=== PATIENT | female | born 1945 | race Caucasian/White ===

== ENCOUNTER 2023-08-31 00:28 | Emergency (ER) | payer OTHER, SELFPAY ==
[2023-08-31 00:42] VITALS: BP 99/82
--- NOTE | 2023-08-31 01:10 | ED.GENMED ---
History of Present Illness
General
Chief Complaint: Musculo-Skeletal Complaint
Time Seen by Provider: 08/31/23 01:01
Travel History
Have you had any contact with someone who has COVID-19?: No
Do you have any symptoms of coronavirus? Fever > 100 degrees, chills, cough, shortness of breath, sore throat, loss of taste or smell, muscle aches, or headache?: No
History of Present Illness
History of Present Illness:
HPI: The patient presents with several days of increasing pain behind the right knee. She states she has had a Santamaria's cyst in the past which was drained by Dr. Clifford. This feels somewhat similar. She was also concerned for the possibility of a
blood clot. She tried to make an appoint with Dr. Hanna however they apparently did not take her insurance so she has an appointment somewhere in [place] in 2 days.
EXAM:
GENERAL: Well appearing in no distress
HEENT: Moist oral mucosa
NEUROLOGIC: Excellent strength all extremities, no coordination deficits
PSYCHIATRIC: Appropriate mental status, normal insight and judgement
EXTREMITIES: The patient has rather significant tenderness to the popliteal region of the right knee, there is only minimal swelling at the right calf with no significant tenderness, there is markedly decreased active range of motion at the right
knee
SKIN: No rash, no lesions
ED COURSE:
1:10 AM: I initially evaluated patient
NUMBER AND COMPLEXITY OF PROBLEMS ADDRESSED AT THE ENCOUNTER
� Chronic conditions affecting care: Asthma, migraine, high blood pressure, hyperlipidemia, hypothyroidism
� Acute Exacerbation and/or Progression of Chronic Illness: This is an acute problem
� Differential Diagnosis includes: Santamaria's cyst, DVT, osteoarthritis, knee sprain, internal derangement of the right knee
AMOUNT AND/OR COMPLEXITY OF DATA TO BE REVIEWED AND ANALYZED
� I performed an independent evaluation of and my interpretation is:
EKG:
CT:
X-rays:
Laboratory Studies:
Other: Ultrasound reviewed with bindery technician
� Review of other/old records: The patient had ultrasound on 08/12/2022 that showed no DVT but did show a 4.6 cm fluid collection in the right popliteal fossa
� Clinical information was obtained by an independent historian:
� Prescriptions/Medications Considered but not given: I offered and considered narcotic analgesia as she appears uncomfortable for the patient declined opiates. She is already on NSAIDs.
� Further testing considered but not performed:
RISK OF COMPLICATIONS AND/OR MORBIDITY OR MORTALITY OF PATIENT MANAGEMENT
� Social determinants of health affecting care: Lives at home, drove herself here
� Discussion with other providers: I spoke to the bindery technician who states the patient has a 2.5 cm popliteal cyst and no DVT.
� Escalation of care including admission/observation vs risk of discharge considered: She agrees to try Tylenol and will check imaging.
Past History
Past History
ED Past Medical History: Asthma, HTN, Hypercholesterolemia, Hypothyroidism and Other (Arthritis, fibromyalgia, osteoporosis)
ED Past Surgical History: Gynecological, Orthopedic and Tonsilectomy
Social History
Tobacco: Non-smoker
Alcohol: None
Drug: None
Personal: Single
Living: alone
Employment: Not employed
Family History
Family History: Other
Phy Exam
Physical Exam
Physical Exam:
See HPI
Course
Orders/Labs/Results
Orders:
Orders
08/31/23 01:09
Acetaminophen [Tylenol] 1,000 mg PO NOW STA
CR Knee- Right 4 Or More View* Urgent
Comment:
Reason For Exam: pain
US Periph Venous LOWER Ext RT Urgent
Comment:
Reason For Exam: swelling eval for popliteal cyst / dvt
Vital Signs
Initial and Last Documented VS:
Initial Vital Signs
Temp Pulse Resp BP Pulse Ox
98.7 F 70 18 99/82 96
08/31/23 00:42 08/31/23 00:42 08/31/23 00:42 08/31/23 00:42 08/31/23 00:42
Last Documented Vital Signs
Temp Pulse Resp BP Pulse Ox
98.7 F 57 15 153/69 98
08/31/23 00:42 08/31/23 02:00 08/31/23 02:00 08/31/23 02:00 08/31/23 02:00
*Critical Care Note
Total Time (30-74mins, 75-104mins- exclusive of procedures): Not Applicable
ED Attending Note
-
Portions of this chart may have been created with voice recognition software.� Occasional wrong word or��sound alike� substitutions may have occurred due to the inherent limitations of voice recognition software.
Discharge Plan
Departure
Patient Disposition: Home (Routine Discharge)
Date of Disposition: 08/31/23
Time of Disposition: 02:44
Patient with high blood pressure during this ER visit?: Yes
Discharge Problem:
Santamaria's cyst
Instructions: Santamaria's Cyst (DC)
Prescriptions:
No Action
albuterol sulfate 1 PUFF HFA aerosol inhaler
2 puff inhalation R Q4HPRN PRN (Reason: ASTHMA)
Patient Comments:
last taken 6 months ago
amitriptyline 10 MG tablet
10 mg PO HS
multivitamin 1 EACH tablet
1 ea PO DAILY
calcium-vitamin D3-vitamin K 1 EACH tablet,chewable
1 ea PO DAILY
fluticasone propion-salmeterol [Advair Diskus] 100-50 mcg/dose Blister With Device
1 inh INHALATION PRN PRN (Reason: shortness of breath)
valsartan-hydrochlorothiazide 80-12.5 mg Tablet
1 tab PO DAILY
levothyroxine [Synthroid] 75 mcg Tablet
75 mcg PO DAILY
Referrals:
Carlton Hendricks MD [Family Provider] -
Activity Restrictions/Additional Instructions:
The ultrasound showed a 2.5 cm popliteal cyst. The ultrasound did not show any clots. I saw no changes on the x-ray compared to prior. Return here if worse.
Interventions
Interventions:
*Risk Screen - Suicide Last Done: 08/31/23 00:46
*General Assessment Last Done: 08/31/23 00:46
*Neglect/Abuse Screening Last Done: 08/31/23 00:46
ED- Fall Risk Assessment Last Done: 08/31/23 01:57
*ED COVID-19 Vaccine History Last Done: 08/31/23 01:57
ED-Musculoskeletal Assessment Last Done: 08/31/23 01:57
[2023-08-31] MEDS: TYLENOL 1000 MG PO (01:55)
[2023-08-31 02:00] VITALS: BP 153/69
[2023-08-31 02:02] VITALS: BMI 28.2
== END 2023-08-31 03:00 | disposition home or self-care (01) ==
LOC: EMR 00:28
PROVIDERS: EMERGENCY PHYSICIAN Emergency Medicine; FAMILY PHYSICIAN Family Medicine
DX: M71.21 Synovial cyst of popliteal space [Baker], right knee (principal); E03.9 Hypothyroidism, unspecified; I10 Essential (primary) hypertension; J45.909 Unspecified asthma, uncomplicated; E78.00 Pure hypercholesterolemia, unspecified
CPT/HCPCS: 99284; 73564; 93971

== ENCOUNTER → 2023-10-10 12:54 | Outpatient (REF) | payer OTHER, SELFPAY | LOC: PAVMRI 12:54 | PROVIDERS: ATTENDING PHYSICIAN Internal Medicine Gastroenterology; FAMILY PHYSICIAN Family Medicine | DX: R93.3 Abnormal findings on diagnostic imaging of other parts of digestive tract (principal) | CPT/HCPCS: 74183; A9575 ==

== ENCOUNTER → 2023-12-23 08:37 | Outpatient (REF) | payer OTHER, SELFPAY | LOC: HWRAD 08:37 | PROVIDERS: ATTENDING PHYSICIAN Family Medicine | DX: M25.551 Pain in right hip (principal) | CPT/HCPCS: 73502 ==

== ENCOUNTER → 2024-01-24 10:02 | Outpatient (REF) | payer OTHER, SELFPAY | LOC: WDC 10:02 | PROVIDERS: ATTENDING PHYSICIAN Obstetrics & Gynecology; FAMILY PHYSICIAN Family Medicine | DX: N64.4 Mastodynia (principal); N63.20 Unspecified lump in the left breast, unspecified quadrant; N63.23 Unspecified lump in the left breast, lower outer quadrant | CPT/HCPCS: 76642; 77061; 77065 ==

== ENCOUNTER → 2024-02-18 10:55 | Outpatient (REF) | payer OTHER, SELFPAY | LOC: HWRCS 10:55 | PROVIDERS: ATTENDING PHYSICIAN Internal Medicine Cardiovascular Disease; FAMILY PHYSICIAN Family Medicine | DX: I48.0 Paroxysmal atrial fibrillation (principal); I05.9 Rheumatic mitral valve disease, unspecified; I36.1 Nonrheumatic tricuspid (valve) insufficiency; R06.09 Other forms of dyspnea | CPT/HCPCS: 93306 ==

== ENCOUNTER → 2024-03-17 06:55 | Outpatient (REF) | payer OTHER, SELFPAY | LOC: DHCBC/DCA 06:55 | PROVIDERS: ATTENDING PHYSICIAN Nurse Practitioner Gerontology; FAMILY PHYSICIAN Family Medicine | DX: R07.89 Other chest pain (principal) | CPT/HCPCS: 78452; 93017; A9500; J2785 ==

== ENCOUNTER 2024-04-06 11:36 | Emergency (ER) | payer OTHER, SELFPAY ==
[2024-04-06 11:45] VITALS: BP 125/75
--- NOTE | 2024-04-06 11:51 | ED.GENMED ---
ED Provider Triage
<Milan Howell PA-C - Last Filed: 04/06/24 11:53>
-
Patient seen by provider in Triage?: Seen in Triage
78-year-old female presents for evaluations of racing heart and palpitations after starting a new medication prescribed by apprentice lineman [employer]. Medication is Tizem. She is due for ablation on 04/[address] Martinez.
No chest pain here. Will check EKG and basic labs.
Vitals stable at triage.
History of Present Illness
<Milan Howell PA-C - Last Filed: 04/06/24 11:53>
General
Chief Complaint: Cardiac Symptoms
Time Seen by Provider: 04/06/24 15:39
<Kristi Slater PA-C - Last Filed: 04/06/24 20:23>
General
Source: patient
Exam Limitations: none
Nursing documentation reviewed up to this point in time: agreed with
History of Present Illness
History of Present Illness:
Patient is a 78-year-old female with past medical history of atrial fibrillation currently anticoagulated on Eliquis with plans for ablation in 2 weeks, hypertension, hyperlipidemia, hypothyroidism, migraine headaches, asthma, who presents to the
emergency department for evaluation of palpitations. Patient reports that she woke up around 3:00 this morning with the palpitations which felt her heart was beating out of her chest. Patient states that she has a EKG at that home. She reports
that it informed her that she was in atrial fibrillation. She reports that she also checked her blood pressure and states that the systolic started out at 113 but continued to drop all the way down to 90. Patient notes associated shortness of
breath. Patient reports that she did have some chest discomfort but states that she always has chest discomfort and this is not new for her. Patient reports that she did feel slightly nauseated but did not vomit. Patient reports that last night
she did take diltiazem 180 mg at dinnertime. She reports that this was a new medication for her and the first time she had ever taken it. Patient reports that she also felt dizzy, like she was going to pass out. Patient reports that her symptoms
are improved at this time although she thinks that she still has some symptoms because she is hungry and has not eaten all day. Patient denies fevers, chills, cough, hemoptysis, abdominal pain, change in her bowel habits, recent lower extremity
edema. Patient reports that she did call her apprentice lineman [employer] office this morning and they referred her to the emergency department for further evaluation.
Past History
<Milan Howell PA-C - Last Filed: 04/06/24 11:53>
Past History
ED Past Medical History: Asthma, HTN, Hypercholesterolemia, Hypothyroidism and Other (Arthritis, fibromyalgia, osteoporosis)
ED Past Surgical History: Gynecological, Orthopedic and Tonsilectomy
Social History
Tobacco: Non-smoker
Alcohol: None
Drug: None
Personal: Single
Living: alone
Employment: Not employed
Family History
Family History: Other
Review of Systems
<Kristi Slater PA-C - Last Filed: 04/06/24 20:23>
Review of Systems
Allergies reviewed?: Yes
All Other Systems: ROS reviewed and negative except as documented in HPI and ROS
Constitutional: Reports no symptoms
EENT: Reports no symptoms
Respiratory: Reports trouble breathing
Cardiac: Reports chest pain and palpitations
ABD/GI: Reports nausea; Denies abdominal pain or vomiting
: Reports no symptoms
Musculoskeletal: Reports no symptoms
Skin: Reports no symptoms
Neurological: Reports no symptoms
Endocrine: Reports no symptoms
Hematologic/Lymphatic: Reports no symptoms
Psychiatric: Reports no symptoms
Phy Exam
<Kristi Slater PA-C - Last Filed: 04/06/24 20:23>
General Physical Exam
General Presentation: well appearing and no apparent distress
General Skin: warm and dry
General Habitus: normal
General Mental: alert
General Hydration: appears well hydrated
ENT Exam
ENT Exam: EOMI, pharynx normal, neck supple and normocephalic
Eye Exam
Eye Exam: PERRL, cornea clear and conjunctiva normal
Cardiovascular Exam
Cardiovascular Exam: no edema, no murmur, normal peripheral pulses and irregularly irregular
Pulmonary Exam
Pulmonary Exam: lungs clear, no respiratory distress, no rales, no crackles, no rhonchi, no stridor, no wheezing and no cough
Gastrointestinal Exam
Gastrointestinal Exam: normal bowel sounds, non tender, soft, no organomegaly, no pulsatile mass and non distended
Neurological Exam
Neurological Exam: alert, oriented x3, no motor deficits and speech normal
Musculoskeletal Exam
Musculoskeletal Exam: full ROM and no edema
Skin Exam
Skin Exam: normal color, warm/dry, no rash and no petechia
Psychiatric Exam
Psychiatric Exam: normal mood/affect
Course
<Milan Howell PA-C - Last Filed: 04/06/24 11:53>
Orders/Labs/Results
Orders:
Orders
04/06/24 11:37
Electrocardiogram (*1) Urgent
Reason for Study: Palpitations
EKG- Treatment ONCE
04/06/24 11:56
Complete Blood Count/With Diff Urgent
Comprehensive Metabolic Panel Urgent
TSH Reflex To Free T4 Urgent
04/06/24 16:10
CR Chest - 2 Views Urgent
Comment:
Reason For Exam: shortness of breath, palpitations
Abnormal Lab Results
04/06/24
11:56
BUN 23 H mg/dl
(7-17)
Glucose 103 H mg/dl
(70-99)
04/06/24 11:56
04/06/24 11:56
Vital Signs
Initial and Last Documented VS:
Initial Vital Signs
Temp Pulse Resp BP Pulse Ox
97.7 F 80 18 125/75 96
04/06/24 11:45 04/06/24 11:45 04/06/24 11:45 04/06/24 11:45 04/06/24 11:45
Last Documented Vital Signs
Temp Pulse Resp BP Pulse Ox
97.7 F 80 18 126/74 98
04/06/24 11:45 04/06/24 15:49 04/06/24 15:49 04/06/24 15:49 04/06/24 15:49
<Kristi Slater PA-C - Last Filed: 04/06/24 20:23>
Orders/Labs/Results
Orders:
Orders
04/06/24 11:37
Electrocardiogram (*1) Urgent
Reason for Study: Palpitations
EKG- Treatment ONCE
04/06/24 11:56
Complete Blood Count/With Diff Urgent
Comprehensive Metabolic Panel Urgent
TSH Reflex To Free T4 Urgent
04/06/24 16:10
CR Chest - 2 Views Urgent
Comment:
Reason For Exam: shortness of breath, palpitations
Abnormal Lab Results
04/06/24
11:56
BUN 23 H mg/dl
(7-17)
Glucose 103 H mg/dl
(70-99)
04/06/24 11:56
04/06/24 11:56
Vital Signs
Initial and Last Documented VS:
Initial Vital Signs
Temp Pulse Resp BP Pulse Ox
97.7 F 80 18 125/75 96
04/06/24 11:45 04/06/24 11:45 04/06/24 11:45 04/06/24 11:45 04/06/24 11:45
Last Documented Vital Signs
Temp Pulse Resp BP Pulse Ox
97.7 F 80 18 126/74 98
04/06/24 11:45 04/06/24 15:49 04/06/24 15:49 04/06/24 15:49 04/06/24 15:49
<Kristi Slater PA-C - Last Filed: 04/06/24 20:23>
*EKG
Interpreted by ED Provider?: Yes
EKG Intrepretation Date: 04/06/24
EKG Intrepretation Time: 12:00
Interpretation: abnormal
Comparison EKG: changes noted (patient now in atrial fibrillation)
Heart Rate: 69
Rate: normal
Rhythm: a-fib
[place]: normal axis
Ischemia: no ischemia
*Critical Care Note
Total Time (30-74mins, 75-104mins- exclusive of procedures): Not Applicable
<Kristi Slater PA-C - Last Filed: 04/06/24 20:23>
Update Note
Update Note:
78-year-old female presents emergency department for evaluation of palpitations that started overnight last night. Patient reports some associated symptoms such as shortness of breath, chest pain, nausea. Patient reports that her symptoms have
largely improved although not entirely resolved. On arrival, patient's vital signs are stable, she is afebrile. On exam, patient is well-appearing, she is in no acute distress, her heart is irregularly irregular, however she has clear lungs and a
benign abdomen. EKG demonstrates atrial fibrillation which is rate controlled. Labs were performed and the patient was in the waiting room and are nonactionable. Case was discussed with ED attending, will obtain troponin given the patient's chest
pain along with chest x-ray given her chest pain and shortness of breath. However, when I went to discuss the plan with the patient, I was advised that she had eloped.
ED Attending Note
<Milan Howell PA-C - Last Filed: 04/06/24 11:53>
-
Portions of this chart may have been created with voice recognition software.� Occasional wrong word or��sound alike� substitutions may have occurred due to the inherent limitations of voice recognition software.
Discharge Plan
Departure
Patient Disposition: Elopement
Date of Disposition: 04/06/24
Time of Disposition: 16:58
Prescriptions:
No Action
albuterol sulfate 1 PUFF HFA aerosol inhaler
2 puff inhalation R Q4HPRN PRN (Reason: ASTHMA)
Patient Comments:
last taken 6 months ago
amitriptyline 10 MG tablet
10 mg PO HS
multivitamin 1 EACH tablet
1 ea PO DAILY
calcium-vitamin D3-vitamin K 1 EACH tablet,chewable
1 ea PO DAILY
fluticasone propion-salmeterol [Advair Diskus] 100-50 mcg/dose Blister With Device
1 inh INHALATION PRN PRN (Reason: shortness of breath)
valsartan-hydrochlorothiazide 80-12.5 mg Tablet
1 tab PO DAILY
levothyroxine [Synthroid] 75 mcg Tablet
75 mcg PO DAILY
tramadol 50 mg tablet
50 mg PO BID PRN (Reason: Pain) Qty: 4 0RF
Referrals:
Jose Miguel Larson MD [Family Provider] -
Interventions
Interventions:
*Risk Screen - Suicide Last Done: 04/06/24 11:45
*General Assessment Last Done: 04/06/24 11:45
*Neglect/Abuse Screening Last Done: 04/06/24 11:45
ED- Fall Risk Assessment Last Done: 04/06/24 15:48
*ED COVID-19 Vaccine History Last Done: 04/06/24 11:45
*Nursing Disposition Last Done: 04/06/24 17:23
ED- Pulmonary Assessment Last Done: 04/06/24 15:48
ED- Cardiac Assessment Last Done: 04/06/24 15:48
Discharge Date and Time
Discharge Date/Time: 04/06/24 17:23
Print Language: [place]
[2024-04-06 12:09] LABS: % Basophils 0.6 % (0-2); % Eosinophils 0.9 % (0-6); % Immature Granulocytes 0.2 % (0-0.5); % Monocytes 7.2 % (1.7-9.3); % Neutrophils 70.1 % (42.2-75.2); Absolute Basophils 0.1 10^3/uL (0-0.2); Absolute Eosinophils 0.1 10^3/uL (0-0.7); Absolute Lymphocytes 1.8 10^3/uL (1.2-3.4); Absolute Monocytes 0.6 10^3/uL (0.1-0.6); Hematocrit 41.8 % (37.0-47.0); Hemoglobin 13.9 g/dL (12.0-16.0); Mean Corp Hgb Conc. 33.3 g/dL (33.0-37.0); Mean Corpuscular Hgb 29.1 pg (27.0-31.0); Mean Corpuscular Volume 87.4 fL (81.0-99.0); Mean Platelet Volume 10.2 fL (7.4-10.4); Nucleated Red Blood Cells % 0 %; Platelet Count 296 10^3/uL (130-400); Red Blood Cell Count 4.78 10^6/uL (4.20-5.40); Red Cell Dist. Width 13.2 % (11.5-14.5); White Blood Cell Count 8.6 10^3/uL (4.8-10.8)
[2024-04-06 12:35] LABS: ALT (SGPT) 26 U/L (0-35); AST (SGOT) 28 U/L (14-36); Albumin 4.3 g/dl (3.5-5.0); Alkaline Phosphatase 47 U/L (38-126); Blood Urea Nitrogen 23 mg/dl (7-17); Calcium 9.9 mg/dl (8.4-10.2); Carbon Dioxide 26 mmol/L (22-30); Chloride 104 mmol/L (98-107); Glucose 103 mg/dl (70-99); Potassium 4.4 mmol/L (3.5-5.1); Sodium 142 mmol/L (135-145); Total Bilirubin 0.5 mg/dl (0.2-1.3); Total Protein 6.6 g/dl (6.3-8.2); eGFR > 60.00
[2024-04-06 13:06] LABS: TSH Reflex To Free T4 2.05 uIU/ml (0.47-4.68)
[2024-04-06 15:49] VITALS: BP 126/74
== END 2024-04-06 17:23 | disposition left against medical advice (07) ==
LOC: EMR 11:36
PROVIDERS: Physician Assistant; EMERGENCY PHYSICIAN Emergency Medicine; FAMILY PHYSICIAN Family Medicine
DX: R00.2 Palpitations (principal); I48.91 Unspecified atrial fibrillation; I10 Essential (primary) hypertension; E78.00 Pure hypercholesterolemia, unspecified; E03.9 Hypothyroidism, unspecified; J45.909 Unspecified asthma, uncomplicated; M19.90 Unspecified osteoarthritis, unspecified site; M79.7 Fibromyalgia; M81.0 Age-related osteoporosis without current pathological fracture
CPT/HCPCS: 99283; 80053; 84443; 85025; 93005

== ENCOUNTER 2024-04-20 07:52 | Day surgery (SDC) | payer OTHER, SELFPAY ==
[2024-04-20] VITALS (10 sets, daily range): BP systolic 103–127; BP diastolic 60–92; BMI 31.1
[2024-04-20] MEDS: EMEND 40 MG PO (08:58)
[2024-04-20] MEDS: NSS 500 IV (08:59)
[2024-04-20 12:40] LABS: ACT-LR - POC 379 Seconds (116-155)
[2024-04-20 12:58] LABS: ACT-LR - POC 321 Seconds (116-155)
[2024-04-20 13:35] LABS: ACT-LR - POC 314 Seconds (116-155)
--- NOTE | 2024-04-20 13:48 | ITS.CL.ABL ---
Pediatric Geneticist - Ablation
Ablation
Procedure Report:
AFIB ablation:
Ms. Wall is a very pleasant 78 yr old woman with symptomatic persistent AF who had gone into persistent AF two weeks ago presented today to the EP lab for atrial fibrillation ablation.
Date of the Procedure:
04/20/2024
Indications:
Persistent atrial fibrillation, atrial flutter
Pre-Operative Diagnosis:
Persistent atrial fibrillation, atypical atrial flutter
Post-Operative Diagnosis:
Persistent atrial fibrillation, atypical atrial flutter
Procedure Performed:
Atrial fibrillation ablation with Pulsed-Field approach for pulmonary vein isolation,
Left atrial roof dependent atypical atrial flutter ablation
Posterior wall isolation
Performing Physician:
Anastacia Albarran MD
Assistants:
EP staff
Anesthesia:
See anesthesia records
Detailed Description of the Procedure:
Written informed consent was obtained from the patient after a full explanation of the risks and benefits of the procedure including the risks of sedation and anesthesia.
The patient was brought to the electrophysiology laboratory in stable condition in fasting state. Continuous electrocardiographic and hemodynamic monitoring was initiated.
The initial rhythm was atrial fibrillation.
The procedure site was meticulously prepared with surgical scrub and allowed to dry with no pooling. Sterile draping was applied to cover the procedure site. The image intensifier was draped with sterile bag and positioned over the patient. After
infusion of local anesthetic, vascular access was obtained under ultrasound guidance and sheaths were placed over guide wire as detailed below.
Sheath and Catheter Placement:
In the right femoral vein, an 8-Turkish sheath was placed under ultrasound guidance for use during the ablation procedure and a mapping catheter was intermittently placed in the high right atrium, right ventricle, left atrium. In the right femoral
vein, another 9-Fr sheath was placed for use during intra-cardiac echo procedure. Another 7Fr sheath was placed in the left femoral vein for CS catheter placement.
The sheaths were upgraded as needed during the case. Intra-cardiac catheters were positioned using direct fluoroscopic guidance. Decapolar catheter advanced into CS position. ICE catheter was placed in RA. The following catheters / sheaths were
placed
Sheaths:
��������� 15Fr steerable sheath (FlexCath Cross�, YouScan) in right femoral vein in right femoral vein
��������� 9Fr in right femoral vein
��������� 7Fr in right femoral vein
Catheters:
��������� CHAD HD Grid mapping catheter � at locations of RA, LA
��������� PulseSelect� PFA catheter
��������� ICE catheter -AcuNav - at locations of RA, SVC, and RV.
��������� Decapolar Bard catheter in RA and CS
Intracardiac ECHO:
An 8-Turkish AcuNav intracardiac ECHO (ICE) probe was advanced through the 9-Turkish sheath in the right femoral vein into the right atrium under fluoroscopic and ICE ultrasound image guidance and a baseline ECHO study was performed. The left atrial
size was dilated. There was moderate tricuspid regurgitation. The aortic valve was grossly normal. There was normal left ventricular systolic functions. There is no pericardial effusion. All the four veins were identified and has flow identified.
During the procedure, ICE was used for monitoring of complications, guidance of trans-septal puncture, monitor the catheter position and tracking ablation lesions. No change in the pericardial space noted throughout the procedure.
Trans-septal Puncture:
Heparin was initiated and infused to maintain appropriate ACT. A J-tipped guidewire was advanced through the 8-Turkish sheath in the right femoral vein into the superior vena cava under fluoroscopic and ICE guidance. The 8-Turkish sheath was exchanged
for a FlexCath Cross sheath which was advanced into the superior vena cava. An AcMopio transseptal access system was utilized to perform the trans-septal puncture. The apparatus was withdrawn until it was in contact with the fossa ovalis. The
position was adjusted based on fluoroscopy and ultrasound images from ICE. Under fluoroscopic, hemodynamic and ICE ultrasound guidance, left atrium was cannulated by advancing the needle. Once atrial septum was cannulated, the needle was pulled back
and a guide wire was advanced through the needle into the left atrium. The guide wire was advanced into the left superior pulmonary vein. Both the sheath and the dilator was advanced into the left atrium. The dilator with the needle was withdrawn.
Blood was aspirated from the FlexCath cross sheath and arterial blood confirmed. The sheath was flushed. Saline injection noted into the left atrium on ICE. The mapping catheter was advanced in the sheath into the left pulmonary vein. Left atrial
pressure was measured.
3D Electroanatomic Mapping:
Using the HD Grid catheter advanced through sheath into the left atrium, an electroanatomic map (EAM) of the left atrium was created using Ac[employer]ica mapping system. The map was used for localization of catheter position and tacking of ablation
lesions. The EAM of the left atrium showed 4 pulmonary veins with two left sided and two right sided veins electrically connected to the body the LA. There was extensive areas of low voltage noted in the left atrium with minimal electrical activity
in the posterior wall in atrial fibrillation. But once mapped in sinus rhythm, the posterior and anterior chi had some healthy areas with patchy scar all over the LA. The posterior wall had highly fractionated signals.
The LA was dilated in size.
Following the EAM, preparation were made for ablation.
Ablation:
Ablation # 1: Pulmonary vein Isolation:
Glycopyrrolate 0.2 mg was given prior to the placement of ablation. Using Medudem� pulsed field ablation system, pulmonary vein isolation was achieved. First the ablation catheter was placed in the LSPV and ostial ablation lesions were performed
in a counter clock grover approach all around the PV ostium circumferentially. Then the catheter was placed on the antral location and multiple ablation lesions were placed circumferentially on the antrum of the vein.
In the similar fashion, the LIPV were isolated.
Then the catheter was moved to right sided veins. The ostial and antral ablations were placed as noted above to the RSPV and RIPV.
Cardioversion:
Once the PV isolation was achieved, decision was made to proceed with cardioversion. A 200 J biphasic shock was applied on the milton posterior Zoll patches and sinus rhythm was achieved. No significant pause noted.
Electroanatomic mapping of LA
Once the sinus rhythm achieved, the LA was mapped with HD grid in detail. There were extensive areas of fibrosis/low amplitude signals consistent with fibrosis was noted in the posterior wall with highly fractionated signals. With history of
atypical atrial flutter, decision was made to create roofline block for atypical flutter ablation and proceed with posterior wall isolation for additional atrial fibrillation ablation.�
While mapping the left atrium, patient did spontaneously go into atrial fibrillation/flutter that degenerated into atrial fibrillation and was terminated back into sinus rhythm spontaneously.
Ablation # 2: Atypical atrial flutter ablation:
Given patient hx of atypical atrial flutter and EAM showed there was a clear channel of electrical activity left in the posterior wall with multiple CFAE and AF areas on the roof significant scar noted on the roof with some residual electrical
activity noted. This increased the risk of atrial flutter and decision was made to create a roof line to block a slow conduction.
Using Medudem� pulsed field ablation system, a set of pulsefield ablations were placed on the roof line connecting the left superior pulmonary vein ablation lesions to the right superior pulmonary vein lesions rings.
Ablation # 3: Posterior wall isolation:
Using the pulsed field ablation catheter, the catheter was placed on the posterior wall and moved around the posterior wall to have adequate contact and ablations were placed isolating the posterior wall.
Post ablation Electroanatomic mapping:
Once ablation was completed, the EAM of the LA was done again in sinus rhythm with excellent demarcation of LA myocardium and isolated antral tissue. There was dissociated signals were noted in the veins as well.
EPS and Confirmation of the PVI and bidirectional block:
Following achievement of entrance block at the pulmonary veins, pacing from the HD catheter in each of the four veins at 10 milliamps for 2 milliseconds showed entrance and exit block. All PVI were rechecked at the end of the case and remained
isolated with dissociated and local capture with pacing. Entrance and exit block were demonstrated in all veins.
Procedure End
ICE study was done again that showed no epicardial accumulation. No complications noted.
Following the completion of the EP study, catheters were removed. Protamine 40 mg was given at the end of the procedure and ACT was checked repeatedly. The sheaths were removed and hemostasis achieved with �VASCADE� and manual compression after
acceptable ACT is achieved.
Left atrial Pressure:
Pre-Procedure: Mean LA pressure was 12mmHg
Post-Procedure: Mean LA pressure was 15mmHg
Post-Procedure: Mean LR pressure was 11mmHg
Fluoro time:
5.7 min / DAP 2.33
Estimated Blood loss:
<10 cc
Specimens Removed:
None.
Implants / Devices:
None
Urine output:
None
Packs / Drains/ Tubes:
None
Instrument / Sponge Count Correct:
Yes
Complications of the Procedure:
None
Condition of Patient at Time of Transfer:
Hemodynamically stable with no neurological or vascular compromise.
Summary:
Successful atrial fibrillation ablation with Pulsed Field approach for pulmonary vein isolation, atypical atrial flutter ablation with a roof dependent block creation, posterior wall isolation
Figures from the Procedure:
Figure 1: The electroanatomic mapping (EAM) of the left atrium with bipolar voltage (purple indicates normal electrical activity with brown as no myocardial muscle electric activity indicating a line of block or scar.
Baseline and post PVI and PWI
Baseline and post PVI
[2024-04-20] MEDS: TYLENOL 650 MG PO (15:17)
[2024-04-20] MEDS: ANESTHETIC LOZENGE 1 LOZENGE PO (15:18)
--- NOTE | 2024-04-20 16:14 | W.PN.UPDATE ---
Update Note
Progress Note Update
Pt seen post PFA. Right groin with vascade closure, no ht/bleeding, oob ambulating, urinating without difficulty. Post EKG SB w/1st deg AVB 50s, no acute changes. Resume eliquis tonight at usual time. Followup at [facility] arranged. Home later today if
groin site/tele remain stable.
== END 2024-04-20 16:45 | disposition home or self-care (01) ==
LOC: CATH 07:52
PROVIDERS: ATTENDING PHYSICIAN Internal Medicine Cardiovascular Disease; FAMILY PHYSICIAN Family Medicine; OTHER PHYSICIAN Internal Medicine Cardiovascular Disease
DX: I48.19 Other persistent atrial fibrillation (principal); I48.4 Atypical atrial flutter; I10 Essential (primary) hypertension; J45.909 Unspecified asthma, uncomplicated; E78.5 Hyperlipidemia, unspecified; E78.00 Pure hypercholesterolemia, unspecified; E03.9 Hypothyroidism, unspecified; M19.90 Unspecified osteoarthritis, unspecified site; M79.7 Fibromyalgia; M81.0 Age-related osteoporosis without current pathological fracture; Z79.01 Long term (current) use of anticoagulants; Z79.899 Other long term (current) drug therapy; Z79.890 Hormone replacement therapy
CPT/HCPCS: C1732; C1769; C1892; C1759; 85347; 93005; 93655; 93656; C1733; C1760; C1766; C1894

== ENCOUNTER → 2024-04-27 13:09 | Outpatient (REF) | payer OTHER, SELFPAY ==
[2024-04-27 15:43] LABS: Urine Albumin Trace (Neg - Trace); Urine Bilirubin Negative (Negative); Urine Character Very Cloudy (Clear); Urine Color Yellow; Urine Glucose Negative (Negative); Urine Ketone Negative (Negative); Urine Leukocyte 2+ (Negative); Urine Nitrite Negative (Negative); Urine Occult Blood 1+ (Negative); Urine Specific Gravity 1.025 (<1.030); Urine Urobilinogen Negative (Neg - 1+)
[2024-04-27 15:54] LABS: Urine Bacteria Many (Negative); Urine Red Blood Cell 0-2 /HPF (0-2)
[2024-04-27 15:55] LABS: Urine Amorphous Seen
== END ==
LOC: HWLAB 13:09
PROVIDERS: ATTENDING PHYSICIAN Nurse Practitioner; FAMILY PHYSICIAN Family Medicine
DX: N39.0 Urinary tract infection, site not specified (principal)
CPT/HCPCS: 36415; 81003; 81015; 87077; 87086; 87186

== ENCOUNTER → 2024-05-05 11:06 | Outpatient (REF) | payer OTHER, SELFPAY | LOC: HWLAB 11:06 | PROVIDERS: ATTENDING PHYSICIAN Nurse Practitioner; FAMILY PHYSICIAN Family Medicine | DX: N39.0 Urinary tract infection, site not specified (principal) | CPT/HCPCS: 87086 ==

== ENCOUNTER → 2024-07-01 11:52 | Outpatient (REF) | payer OTHER, SELFPAY | LOC: WDC 11:52 | PROVIDERS: ATTENDING PHYSICIAN Obstetrics & Gynecology; FAMILY PHYSICIAN Family Medicine | DX: Z12.31 Encounter for screening mammogram for malignant neoplasm of breast (principal) | CPT/HCPCS: 77063; 77067 ==

== ENCOUNTER → 2024-08-26 12:49 | Outpatient (REF) | payer OTHER, SELFPAY | LOC: WDC 12:49 | PROVIDERS: ATTENDING PHYSICIAN Nurse Practitioner Family; FAMILY PHYSICIAN Family Medicine | DX: N64.4 Mastodynia (principal) | CPT/HCPCS: 76642 ==

== ENCOUNTER → 2024-09-25 12:45 | Outpatient (REF) | payer OTHER, SELFPAY | LOC: HWRAD 12:45 | PROVIDERS: ATTENDING PHYSICIAN Nurse Practitioner Family | DX: R10.2 Pelvic and perineal pain (principal) | CPT/HCPCS: 76830; 76856 ==

== ENCOUNTER → 2024-11-09 09:55 | Outpatient (REF) | payer OTHER, SELFPAY | LOC: HWRAD 09:55 | PROVIDERS: ATTENDING PHYSICIAN Hospitalist | DX: M25.531 Pain in right wrist (principal); M25.532 Pain in left wrist | CPT/HCPCS: 36415; 73100 ==

== ENCOUNTER → 2025-02-12 07:15 | Outpatient (REF) | payer OTHER, SELFPAY | LOC: DHSLP 07:15 | PROVIDERS: ATTENDING PHYSICIAN Internal Medicine Critical Care Medicine; FAMILY PHYSICIAN Hospitalist | DX: G47.30 Sleep apnea, unspecified (principal); R06.83 Snoring | CPT/HCPCS: 95800 ==

== ENCOUNTER → 2025-03-18 12:29 | Outpatient (REF) | payer OTHER, SELFPAY | LOC: HWRAD 12:29 | PROVIDERS: ATTENDING PHYSICIAN Nurse Practitioner | DX: M79.672 Pain in left foot (principal) | CPT/HCPCS: 73630 ==

== ENCOUNTER → 2025-06-10 13:06 | Outpatient (REF) | payer OTHER, SELFPAY | LOC: HWRAD 13:06 | PROVIDERS: ATTENDING PHYSICIAN Physician Assistant | DX: R51.9 Headache, unspecified (principal); S09.90XA Unspecified injury of head, initial encounter | CPT/HCPCS: 70450 ==